=== PATIENT | female | born 1990 | race African-American/Black ===

== ENCOUNTER 2017-10-28 07:55 | Emergency (ER) | payer OTHER ==
[2017-10-28] MEDS ORDERED: KETOROLAC 30 MG/ML INJ ONE (08:26)
[2017-10-28 09:08] LABS: Urine Blood 2+ (NEG); Urine Glucose NEGATIVE (NEG); Urine Protein NEGATIVE (NEG); Urine pH 6.5 (5.0-7.0)
--- NOTE | 2017-10-28 09:16 | EDPHYS ---
Physician Documentation [facility] Name: Amelia Cardenas Age: 27 yrs Sex: Female : 1990 Arrival Date: 10/28/2017 Time: 07:57 Bed 17 Private MD: None, None ED Physician Carlos Alberto De Jesus HPI: 10/28 08:22 This 27 yrs old Black Female presents to ER via Ambulatory with complaints of Sore kdr Throat. 08:22 The patient presents with sore throat, dysphagia, of solids, of liquids, of both solids kdr and liquids. The patient describes throat pain as dry, raw. Onset: The symptoms/episode began/occurred gradually, 3 day(s) ago. Severity of symptoms: At their worst the symptoms were moderate, in the emergency department the symptoms are unchanged. Modifying factors: The symptoms are alleviated by nothing, the symptoms are aggravated by fluids, foods, swallowing, Patient's oral intake status: good. Associated signs and symptoms: Pertinent positives: rhinorrhea, Sore throat Pertinent negatives chest pain, chills, cough, diarrhea, dysphagia, earache, fever, flu-like symptoms, headache, nausea, shortness of breath, vomiting. The patient has not experienced similar symptoms in the past. The patient has not recently seen a physician. Historical: - Allergies: 08:11 PENICILLINS; aa5 - PMHx: 08:11 None; aa5 - PSHx: 08:11 None; aa5 - Immunization history:: Flu vaccine is not up to date. - Social history:: Smoking status: Patient uses tobacco products, smokes one-half pack cigarettes per day. - Ebola Screening: : No symptoms or risks identified at this time. ROS: 08:22 Constitutional: Negative for fever, chills, and weight loss, Eyes: Negative for injury, kdr pain, redness, and discharge, Neck: Negative for injury, pain, and swelling, Cardiovascular: Negative for chest pain, palpitations, and edema, Respiratory: Negative for shortness of breath, cough, wheezing, and pleuritic chest pain, Abdomen/GI: Negative for abdominal pain, nausea, vomiting, diarrhea, and constipation, Back: Negative for injury and pain, : Negative for injury, bleeding, discharge, and swelling, MS/Extremity: Negative for injury and deformity, Skin: Negative for injury, rash, and discoloration, Neuro: Negative for headache, weakness, numbness, tingling, and seizure activity. Psych: Negative for depression, anxiety, suicide ideation, homicidal ideation, and hallucinations, Allergy/Immunology: Negative for hives, rash, and allergies, Endocrine: Negative for neck swelling, polydipsia, polyuria, polyphagia, and marked weight changes, Hematologic/Lymphatic: Negative for swollen nodes, abnormal bleeding, and unusual bruising. 08:22 ENT: Positive for difficulty swallowing, rhinorrhea, sore throat, Negative for drainage from ear(s), sinus pain, dental pain, difficulty handling secretions, hoarseness. Exam: 08:22 Constitutional: This is a well developed, well nourished patient who is awake, alert, kdr and in no acute distress. Head/Face: Normocephalic, atraumatic. Eyes: Pupils equal round and reactive to light, extra-ocular motions intact. Lids and lashes normal. Conjunctiva and sclera are non-icteric and not injected. Cornea within normal limits. Periorbital areas with no swelling, redness, or edema. Neck: Trachea midline, no thyromegaly or masses palpated, and no cervical lymphadenopathy. Supple, full range of motion without nuchal rigidity, or vertebral point tenderness. No Meningismus. Chest/axilla: Normal chest wall appearance and motion. Nontender with no deformity. No lesions are appreciated. Cardiovascular: Regular rate and rhythm with a normal S1 and S2. No gallops, murmurs, or rubs. Normal PMI, no JVD. No pulse deficits. Respiratory: Lungs have equal breath sounds bilaterally, clear to auscultation and percussion. No rales, rhonchi or wheezes noted. No increased work of breathing, no retractions or nasal flaring. Abdomen/GI: Soft, non-tender, with normal bowel sounds. No distension or tympany. No guarding or rebound. No evidence of tenderness throughout. Back: No spinal tenderness. No costovertebral tenderness. Full range of motion. Skin: Warm, dry with normal turgor. Normal color with no rashes, no lesions, and no evidence of cellulitis. MS/ Extremity: Pulses equal, no cyanosis. Neurovascular intact. Full, normal range of motion. Neuro: Awake and alert, GCS 15, oriented to person, place, time, and situation. Cranial nerves II-XII grossly intact. Motor strength 5/5 in all extremities. Sensory grossly intact. Cerebellar exam normal. Normal gait. Psych: Awake, alert, with orientation to person, place and time. Behavior, mood, and affect are within normal limits. 08:22 ENT: TM's: are normal, Nose: Nasal mucosa: edematous, moist, Posterior pharynx: Tonsils: are normal in appearance, Uvula: normal, erythema, that is mild, exudate, is not appreciated, peritonsillar mass, is not appreciated, pooling of secretions, is not appreciated. Vital Signs: 08:11 Temp 98.6(O); Weight 55.79 kg (R); Height 5 ft. 2 in. (157.48 cm) (R); Pain 7/10; aa5 08:15 BP 98 / 68; Pulse 88; Resp 16; Pulse Ox 100% on R/A; hb 09:00 BP 100 / 72; Pulse 80; Resp 16; Pulse Ox 100% on R/A; hb 08:11 Body Mass Index 22.50 (55.79 kg, 157.48 cm) aa5 MDM: 08:22 Data reviewed: vital signs, nurses notes, lab test result(s). kdr 09:16 Patient medically screened. kdr 10/28 08:21 Order name: Rapid Strep; Complete Time: 09:14 kdr 10/28 08:33 Order name: Urine Dipstick--Ancillary (enter results); Complete Time: 09:14 bd 10/28 08:21 Order name: Urine Test (obtain specimen); Complete Time: 08:41 kdr 10/28 08:33 Order name: Urine --Ancillary (enter results); Complete Time: 09:14 10/28 08:46 Order name: Throat Culture EDMS Administered Medications: 08:35 Drug: TORadol 60 mg Route: IM; Site: right deltoid; hb 09:20 Follow up: Response: No adverse reaction hb Disposition: 10/28/17 09:16 Discharged to Home. Impression: Acute pharyngitis. - Condition is Stable. - Discharge Instructions: Pharyngitis. - Prescriptions for Tramadol 50 mg Oral Tablet - take 1 tablet by ORAL route every 8 hours as needed; 12 tablet. Zithromax Z- Alvarez 250 mg Oral Tablet - take 1 tablet by ORAL route as directed for 5 days Day 1 - take two (2) tablets one time. Day 2, 3, 4 , 5 take one (1) tablet once daily.; 6 tablet. - Medication Reconciliation Form, Thank You Letter, Antibiotic Education, Prescription Opioid Use, Work release form form. - Follow up: Private Physician; When: 2 - 3 days; Reason: If symptoms return, Further diagnostic work-up, Recheck today's complaints, Continuance of care, Re-evaluation by your physician. - Problem is new. - Symptoms have improved. Signatures: Dispatcher [employer] EDCA Carlos Alberto De Jesus MD MD [facility] Ifeoma Joy RN RN aa5 Hali Kent RN RN hb Corrections: (The following items were deleted from the chart) 09:25 09:16 10/28/2017 09:16 Discharged to Home. Impression: Acute pharyngitis. Condition is hb Stable. Forms are Medication Reconciliation Form, Thank You Letter, Antibiotic Education, Prescription Opioid Use. Follow up: Private Physician; When: 2 - 3 days; Reason: If symptoms return, Further diagnostic work-up, Recheck today's complaints, Continuance of care, Re-evaluation by your physician. Problem is new. Symptoms have improved. kdr
--- NOTE | 2017-10-28 09:16 | ER ---
Nurse's Notes [facility] Name: Amelia Cardenas Age: 27 yrs Sex: Female : 1990 Arrival Date: 10/28/2017 Time: 07:57 Bed 17 Private MD: None, None Diagnosis: Acute pharyngitis Presentation: 10/28 08:10 Presenting complaint: Patient states: sore throat x 3 days ago. Pt denies any other aa5 symptoms. Transition of care: patient was not received from another setting of care. Onset of symptoms was October 2017. Risk Assessment: Do you want to hurt yourself or someone else? Patient reports no desire to harm self or others. Initial Sepsis Screen: Does the patient meet any 2 criteria? No. Patient's initial sepsis screen is negative. Does the patient have a suspected source of infection? No. Patient's initial sepsis screen is negative. Care prior to arrival: None. 08:10 Method Of Arrival: Ambulatory aa5 08:10 Acuity: EDINSON 4 aa5 Historical: - Allergies: 08:11 PENICILLINS; aa5 - PMHx: 08:11 None; aa5 - PSHx: 08:11 None; aa5 - Immunization history:: Flu vaccine is not up to date. - Social history:: Smoking status: Patient uses tobacco products, smokes one-half pack cigarettes per day. - Ebola Screening: : No symptoms or risks identified at this time. Screenin:15 Abuse screen: Denies threats or abuse. Denies injuries from another. Nutritional hb screening: No deficits noted. Tuberculosis screening: No symptoms or risk factors identified. Fall Risk None identified. Assessment: 08:15 General: Appears in no apparent distress. uncomfortable, Behavior is cooperative, hb crying. Pain: Pain currently is 7 out of 10 on a pain scale. Neuro: Level of Consciousness is awake, alert, obeys commands, Oriented to person, place, time, situation. Cardiovascular: Capillary refill < 3 seconds Patient's skin is warm and dry. Respiratory: Airway is patent Trachea midline Respiratory effort is even, unlabored, Respiratory pattern is regular, symmetrical, Breath sounds are clear bilaterally. GI: No signs and/or symptoms were reported involving the gastrointestinal system. : No signs and/or symptoms were reported regarding the genitourinary system. EENT: Throat is reddened has enlarged tonsils bilaterally. Derm: No signs and/or symptoms reported regarding the dermatologic system. Musculoskeletal: No signs and/or symptoms reported regarding the musculoskeletal system. 09:00 Reassessment: Patient appears in no apparent distress at this time. Patient and/or hb family updated on plan of care and expected duration. Pain level reassessed. Patient is alert, oriented x 3, equal unlabored respirations, skin warm/dry/pink. Patient states symptoms have improved. Vital Signs: 08:11 Temp 98.6(O); Weight 55.79 kg (R); Height 5 ft. 2 in. (157.48 cm) (R); Pain 7/10; aa5 08:15 BP 98 / 68; Pulse 88; Resp 16; Pulse Ox 100% on R/A; hb 09:00 BP 100 / 72; Pulse 80; Resp 16; Pulse Ox 100% on R/A; hb 08:11 Body Mass Index 22.50 (55.79 kg, 157.48 cm) aa5 ED Course: 07:57 Patient arrived in ED. mr 07:57 None, None is Private Physician. mr 08:07 Hali Kent, RN is Primary Nurse. hb 08:10 Triage completed. aa5 08:10 Arm band placed on. aa5 08:11 Carlos Alberto De Jesus MD is Attending Physician. kdr 08:15 Patient has correct armband on for positive identification. Bed in low position. Call hb light in reach. Side rails up X 1. 09:25 No provider procedures requiring assistance completed. Patient did not have IV access hb during this emergency room visit. Administered Medications: 08:35 Drug: TORadol 60 mg Route: IM; Site: right deltoid; hb 09:20 Follow up: Response: No adverse reaction hb Outcome: 09:16 Discharge ordered by . kdr 09:25 Discharged to home ambulatory. hb 09:25 Condition: stable 09:25 Discharge instructions given to patient, Instructed on discharge instructions, follow up and referral plans. medication usage, Demonstrated understanding of instructions, follow-up care, medications, Prescriptions given X 2. 09:25 Patient left the ED. hb Signatures: Carlos Alberto De Jesus MD MD kdr Rivera, Maria mr Calderon, Audri, RN RN aa5 Hali Kent, SABINE RN hb
[2017-10-28 09:29] VITALS: TEMP 98.6
[2017-10-28 09:30] VITALS: O2SAT 100
[2017-10-28 09:32] VITALS: BP 100/72
== END 2017-10-28 09:25 | disposition home or self-care (01) ==
LOC: ER 07:55
DX: J02.9 Acute pharyngitis, unspecified (principal); Z88.0 Allergy status to penicillin; F17.210 Nicotine dependence, cigarettes, uncomplicated
CPT/HCPCS: 81003; 81025; 87070; 87081; 96372; 99283

== ENCOUNTER 2020-02-15 09:24 | Emergency (ER) | payer SELFPAY ==
--- OUTSIDE RECORDS SUMMARY | 2020-02-15 09:26 | XMS REPORT | Continuity of Care Document ---
:1990 Author Organization [facility] t Address [address] [place] [address] [address] [place] [address] Care Team Providers Name Role Phone Unavailable Unavailable Unavailable Problems Condition Condition Condition Status Onset Resolution Last Treating Co mments Source Name Details Category Date Date Treatment Clinician Date Paraumbili Paraumbili Problem Active [facility] hernia eugene hernia Tracy kes - [facility] Depression Depression Problem Active [facility] Schizophre Schizophre Problem Active [facility] Vitamin D Vitamin D Problem Active [facility] deficiency deficiency Tracy kes - [facility] Screening Screening Problem Active [facility] for viral for viral [facility] - disease disease [facility] Vaginal Vaginal Problem Active [facility] discharge discharge Luke [facility] - [facility] Counseling Counseling Problem Active [facility] - coordinati coordinati Me moria on of care on of care [facility] Genital Genital Problem Active [facility] lesion, lesion, [facility] - female female [facility] Allergies, Adverse Reactions, Alerts Allergy Allergy Status Severity Reaction(s) Onset Inactive Treating Comm ents Source Name Type Date Date Clinician penicill Adverse Active Info Not [facility] in Reaction Available [facility] Medications Ordered Filled Start Stop Current Ordering Indication Dosage Frequency Signature Comments Components Source Medication Medication Date Date Medication? Clinician (SIG) Name Name Fluconazole Fluconazole 2020- Yes Yen as [facility] directed [facility] - 00:00: 00:00 [facility] 00 :00 [facility] Azithromyci Azithromyci 2020- Yes Yen [address] [facility] n n 12-14 [facility] - 00:[facility]: 00:00 [facility] 00 :00 [facility] Cefixime Cefixime 2020- Yes Yen [address] [facility] 12[facility]14 [facility] - 00:[facility]: 00:00 [facility] 00 :00 Out[facility] ent Clinics [id number] Yes Yen as [facility] Klonopin Klonopin Yes Yen [address] [facility] at bedtime [facility] ent [facility] Procedures This patient has no known procedures. Encounters Start End Encounter Admission Attending Care Care Encounter Source Date/Time Date/Time Type Type Clinicians Facility Department ID 2019-12-25 2019-12-25 [facility] [id number] [facility] 15:37:00 15:37:00 [facility] Outpati ent [facility] 2019-12-15 2019-12-15 [facility] [id number] 09:20:00 09:20:00 [facility] Outpati ent Clinics 2018-09-22 2018-09-22 [facility] [id number] [facility] 15:52:00 15:52:00 [facility] Outpati ent Clinics 2018-09-20 2018-09-20 [facility] [id number] 11:00:00 11:00:00 t Specialty/U Tracy kes - Specialty rology [facility] /Urology Clinic l Clinic Outpati ent Clinics 2018-09-16 2018-09-16 [facility] [id number] 09:57:00 09:57:00 t Specialty/U Tracy kes - Specialty rology [facility] /Urology Clinic l Clinic Outpati ent Clinics 2018-09-08 2018-09-08 [facility] [id number] 13:20:00 13:20:00 [facility] Outpati ent Clinics Results This patient has no known results.
--- OUTSIDE RECORDS SUMMARY | 2020-02-15 09:26 | XMS REPORT ---
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
--- OUTSIDE RECORDS SUMMARY | 2020-02-15 09:26 | XMS REPORT ---
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 Assessment Counseling and coordination of care Z71.89 Active Assessment Genital lesion, female N94.9 Activ e Problem Genital lesion, female N94.9 Activ e Problem Counseling and coordination of care Z71.89 Active Problem Vaginal discharge N89.8 Active Problem Depression F32.9 Active Problem Schizophrenia F20.9 Active Problem Screening for viral disease Z11.59 Active Problem Vitamin D deficiency E55.9 Active Medications Medication Code Code Instructions Start End Status Dosage System Date Date Azithromycin ND 59140033115 500 MG Orally December 14December Active 2 tablets for 1 dose 2019 Klonopin [place] 42159059798 0.5 MG Orally Active 1 tab let at Once a day bedtime Fluconazole ND 14064043565 150 MG Orally 1 December 14December Active as directed tablet now, then 2020 05, repeat 2019 tablet in 3 days if still with symptoms Cefixime ND 19149417490 400 MG Orally December 14December Active 1 ca psule for one dose 2019 I64-Djogon ND 87085238219 1 MG Orally Active as di rected Results No Known Results Summary Purpose [employer] Submission
--- NOTE | 2020-02-15 11:19 | ER ---
Nurse's Notes [facility] Name: Amelia Cardenas Age: 29 yrs Sex: Female : 1990 Arrival Date: 02/15/2020 Time: : Bed 25 Private MD: Diagnosis: Presentation: 02/14 09:55 Chief complaint: Patient states: body pains, LUQ pain pain x 3 days. Reports nausea. ca1 Denies vomiting and diarrhea. Denies fever. Coronavirus screen: Client denies travel out of the [place] in the last 14 days. At this time, the client does not indicate any symptoms associated with coronavirus-19. Ebola Screen: Patient negative for fever greater than or equal to 101.5 degrees Fahrenheit, and additional compatible Ebola Virus Disease symptoms Patient denies exposure to infectious person. Patient denies travel to an Ebola-affected area in the 21 days before illness onset. No symptoms or risks identified at this time. Initial Sepsis Screen: Does the patient meet any 2 criteria? No. Patient's initial sepsis screen is negative. Does the patient have a suspected source of infection? No. Patient's initial sepsis screen is negative. Risk Assessment: Do you want to hurt yourself or someone else? Patient reports no desire to harm self or others. Onset of symptoms was February 15, 2020. :55 Method Of Arrival: Ambulatory ca1 :55 Acuity: EDINSON 3 ca1 MASTER PRINTER: 09:57 LMP 02/07/2020 ca1 Historical: - Allergies: 09:57 PENICILLINS; ca1 - Home Meds: 09:57 None [Active]; ca1 - PMHx: 09:57 None; ca1 - PSHx: 09:57 None; ca1 - Immunization history:: Adult Immunizations up to date. - Social history:: Smoking status: Patient denies any tobacco usage or history of. Patient uses street drugs, marijuana. Vital Signs: :55 BP 100 / 69; Pulse 105; Resp 16 S; Temp 98.6(O); Pulse Ox 99% on R/A; Weight 59.42 kg ca1 (R); Height 5 ft. 2 in. (157.48 cm) (R); Pain 5/10; 09:55 Body Mass Index 23.96 (59.42 kg, 157.48 cm) ca1 ED Course: Patient arrived in ED. as 09:28 Tad Koch PA is PHCP. jr8 09:28 Alphonse Issa MD is Attending Physician. jr8 09:57 Triage completed. ca1 09:58 Arm band placed on right wrist. ca1 11:17 Ai Joya, RN is Primary Nurse. iw Administered Medications: No medications were administered Outcome: 11:17 Eloped from waiting room. iw 11:18 Patient left the ED. iw Signatures: Yazmin Winter as Ai Joya, RN RN iw Tad Koch PA PA jr8 Edel Sam RN RN ca1 Corrections: (The following items were deleted from the chart) 09:58 09:55 BP 100 / 69; Pulse 117bpm; Resp 16bpm; Spontaneous; Pulse Ox 99% RA; Temp 98.6F ca1 Oral; 59.42 kg Reported; Height 5 ft. 2 in. Reported; BMI: 23.9; Pain 5/10; ca1
[2020-02-15 11:51] VITALS: BP 100/69; TEMP 98.6; O2SAT 99
== END 2020-02-15 11:18 | disposition left against medical advice (07) ==
LOC: ER 09:24
DX: Z53.21 Procedure and treatment not carried out due to patient leaving prior to being seen by health care provider (principal)
CPT/HCPCS: 99281